=== PATIENT | male | born 1970 | race Caucasian/White ===

== ENCOUNTER 2018-11-19 15:10 | Emergency (ER) | payer OTHER ==
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
[2018-11-19] MEDS ORDERED: Sodium Chloride 0.9% 1,000 ML IV SCH (16:30)
--- NOTE | 2018-11-19 16:39 | CRLCT ---
INDICATION: First time seizure. TECHNIQUE: Noncontrast head CT scan. COMPARISON: No comparison studies are available. Findings: Axial noncontrast images through the brain parenchyma demonstrates no acute intracranial hemorrhage or mass. No midline shift. No abnormal extra-axial air fluid collections. There is some fluid in the left mastoid air cells. Paranasal sinuses mastoid air cells skull and skull otherwise appear unremarkable. Impression: No acute intracranial hemorrhage or mass. Please note that all CT scans at this facility use dose modulation, iterative reconstruction, and/or weight-based dosing when appropriate to reduce radiation dose to as low as reasonably achievable. Dictated by Michelle Ma MD @ Nov 19 2018 4:34PM Signed by Dr. Michelle Ma @ Nov 19 2018 4:37PM
== END 2018-11-19 18:32 | disposition home or self-care (01) ==
LOC: JP.ED 15:10
DX: I95.9 Hypotension, unspecified (principal); Z91.048 Other nonmedicinal substance allergy status; Z79.899 Other long term (current) drug therapy; Z95.0 Presence of cardiac pacemaker
CPT/HCPCS: 36415; 70450; 80053; 81001; 84484; 85025; 93005; 96360; 99284; J7030